=== PATIENT | male | born 1935 | race Caucasian/White ===

== ENCOUNTER → 2017-08-01 | Outpatient (CLI) | payer MEDICARE ==
--- NOTE | 2017-08-02 08:46 | RADONC ---
RADIATION ONCOLOGY CONSULTATION NOTE DATE: 08/01/2017 CHART NUMBER: [id number] DIAGNOSIS: Squamous cell carcinoma of skin. STAGE: Stage 1, T1N0M0. ECOG PERFORMANCE STATUS: 0. CONSULTATION NOTE: Mr. 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 HISTORY OF PRESENT ILLNESS: The patient reports that he had a lesion on his right shoulder for several months. On 07/17/2017, he underwent a shave biopsy and pathology revealed an invasive well-differentiated squamous cell carcinoma. This specimen was bisected. The patient was given the option of further surgical excision or possible radiation therapy and is presenting today for discussion of his various options. PAST MEDICAL HISTORY: The patient's past medical history is positive for cardiac issues. He has had mitral valve repair as well as a pacemaker. He has kidney issues with nephrotic syndrome. He has a history of hypertension, diabetes and asthma. He also reports hepatitis and cataracts. He has had Lyme disease since 1997. He has ulnar nerve damage. ALLERGIES: The patient is allergic to NOVOCAIN and MYOSIN. SOCIAL HISTORY: The patient had smoked one pack of cigarettes per day for 10 years, he quit 1959. He does not abuse alcohol. FAMILY HISTORY: The patient's family history is positive for two aunts with breast cancer as well as a cousin with bladder cancer. REVIEW OF SYSTEMS: The patient's review of systems is positive for some hearing loss, some shortness of breath, decreased energy and visual disturbances since cataract surgery. It is otherwise generally noncontributory. He denies nausea, vomiting, fevers, chills, night sweats, diplopia, headaches, anxiety, depression, anorexia, headaches, chest pain, rectal bleeding or bowel problems. PHYSICAL EXAMINATION: The patient is well-developed, well-nourished white male in no acute distress. HEENT: Normocephalic, atraumatic. Extraocular movements are intact. There is no palpable cervical, supraclavicular, infraclavicular, axillary, or inguinal lymphadenopathy present. His lungs are clear to auscultation and percussion. There is a well-healed surgical scar present over the skin of his right shoulder. There are no other lesions or areas of concern over the patient's neck, face or back. ASSESSMENT: I had a very lengthy discussion with this patient and his . Clearly, he is a candidate for external beam radiation therapy and I have so informed him. I have discussed with the patient in detail the potential benefits as well as possible acute and chronic sequelae of external beam radiation therapy. We discussed logistics of treatment planning, simulation and subsequent fractionated daily radiation treatments. In addition, I discussed the possibility of surgery. I think he would be a very good surgical candidate as well. I explained the benefits and drawbacks of each of the treatment modalities. The patient is a very high cure rate from this and I therefore feel he cannot make a wrong decision. He is aware that surgery would be the faster treatment and most likely the least expensive of the two options. He does live in [place] and I explained to him that these treatments are on a daily basis for approximately four weeks' time which would be a lot of commuting. At the end of the discussion, the patient apparently has decided he would prefer radiation. I have therefore scheduled him for initiation of treatment planning. I let him know he can change his mind at any time before the radiation treatments start and just to let us know so we could cancel that appointment. Thank you for allowing us to participate in the care of this very pleasant gentleman. If I could be of any further assistance or provide you with any information, please free to contact me at anytime. As always warm regards. cc: TRINITY Mathis
== END ==
LOC: M ONCR 09:10
PROVIDERS: ATTEND Radiology Radiation Oncology
DX: C44.601 Unspecified malignant neoplasm of skin of unspecified upper limb, including shoulder (principal)

== ENCOUNTER 2017-08-30 15:00 | Outpatient (RCR) | payer MEDICARE ==
--- NOTE | 2017-09-05 16:48 | RADONC ---
RADIATION ONCOLOGY PROGRESS NOTE DATE: 09/04/2017 CHART NUMBER: [id number]. PROGRESS NOTE: Ms. Leigh is presently at a dose of 2750 cGy to the skin on his right shoulder and is tolerating treatments quite well at this point with no complaints related to his radiation therapy. He is having no discomfort or other problems. REVIEW OF SYSTEMS: The patient's review of systems is noncontributory. Denies nausea, vomiting, fevers, chills, night sweats, diplopia, headaches, anxiety or depression, anorexia, weight loss, visual disturbances, chest pain, urinary or bowel difficulties, bone pain, or neurological problems. PHYSICAL EXAMINATION: The patient's skin is in good condition with no evidence of radiation change present. There is no moist or dry desquamation. The remainder of his physical exam remains unchanged. Mr. Leigh is tolerating treatments quite well and radiation will continue as scheduled.
--- NOTE | 2017-09-12 07:39 | RADONC ---
RADIATION ONCOLOGY PROGRESS NOTE DATE: 09/11/2017 CHART NUMBER: [id number] Mr. Leigh is presently at a dose of 4000 cGy to the skin of his back and is tolerating treatments quite well at this point with no complaints related to his radiation therapy. He is having no skin discomfort or other problems. The patient was found to have a new squamous cell carcinoma involving his forehead and we will be setting him up for an electron setup this week to initiate treatment to that area as well. REVIEW OF SYSTEMS: The patient's review of systems is noncontributory. He denies nausea, vomiting, fevers, chills, night sweats, diplopia, headaches, anxiety or depression, anorexia, weight loss, visual disturbances, chest pain, urinary or bowel difficulties, bone pain or neurological problems. PHYSICAL EXAMINATION: The patient's skin is in excellent condition with no evidence of moist or dry desquamation. The remainder of his physical exam remains unchanged. Mr. Leigh is tolerating treatments quite well and radiation will continue as scheduled.
--- NOTE | 2017-09-12 13:20 | RADONC ---
RADIATION ONCOLOGY SIMULATION NOTE DATE: 09/12/2017 CHART NUMBER: [id number] Mr. Leigh was taken to the linear accelerator today for clinical setup of his right episcopal electron beam field. Setup was accomplished without difficulty or discomfort. Radiation treatment planning is underway and radiation treatments will begin subsequently. An immobilization device was created and will be used throughout the course of treatment. I was physically present throughout the course of electron beam setup simulation.
--- NOTE | 2017-09-19 05:54 | RADONC ---
RADIATION ONCOLOGY PROGRESS NOTE DATE: 09/18/2017 CHART NUMBER: [id number] Mr. Leigh is presently at a dose of 5000 cGy to the skin on his back and is about to start radiation to his left moravian. He is tolerating his treatments quite well with no difficulties related to his radiation therapy. The patient's review of systems is noncontributory. He denies nausea, vomiting, fevers, chills, night sweats, diplopia, headaches, anxiety or depression, anorexia, weight loss, visual disturbances, chest pain, urinary or bowel difficulties, bone pain, or neurological problems. PHYSICAL EXAMINATION: The patient's skin is in excellent condition with just a minimal erythema present. The remainder of his physical exam remains unchanged. Mr. Leigh is tolerating treatments quite well and radiation will continue as scheduled.
--- NOTE | 2017-09-25 10:22 | RADONC ---
RADIATION ONCOLOGY PROGRESS NOTE DATE: 09/25/2017 CHART NUMBER: [id number] Mr. Leigh is presently at a dose of 750 cGy to his left rastafari and is tolerating treatments quite well at this point with no complaints related to his radiation therapy. He is having no skin or bone pain. He does have some tenderness of the skin over the shoulder which was completed a week ago. The patient's review of systems is positive for some shoulder skin tenderness but is otherwise noncontributory. He denies nausea, vomiting, fevers, chills, night sweats, diplopia, headaches, anxiety or depression, anorexia, weight loss, visual disturbances, chest pain, urinary or bowel difficulties, bone pain, or neurological problems. PHYSICAL EXAMINATION: The patient's skin is in good condition with no evidence of moist or dry desquamation. The remainder of his physical exam remains unchanged. Mr. Leigh is tolerating treatments quite well and radiation will continue as scheduled.
== END 2017-09-28 ==
LOC: M ONCR 15:00
PROVIDERS: ATTEND Radiology Radiation Oncology
DX: C44.602 Unspecified malignant neoplasm of skin of right upper limb, including shoulder (principal)

== ENCOUNTER 2017-09-29 15:02 | Outpatient (RCR) | payer MEDICARE | END 2017-10-29 | LOC: M ONCR 15:02 | DX: Z51.89 Encounter for other specified aftercare (principal); C44.602 Unspecified malignant neoplasm of skin of right upper limb, including shoulder | CPT/HCPCS: 77336 ==

== ENCOUNTER → 2017-11-22 | Outpatient (CLI) | payer MEDICARE | LOC: M ONCR 10:14 | DX: C44.222 Squamous cell carcinoma of skin of right ear and external auricular canal (principal) ==

== ENCOUNTER → 2019-04-17 | Outpatient (REF) | payer MEDICARE | LOC: M LAB LCGH 15:30 | PROVIDERS: ATTEND Physician Assistant | DX: C44.320 Squamous cell carcinoma of skin of unspecified parts of face (principal) ==

== ENCOUNTER → 2020-02-19 | Outpatient (REF) | payer MEDICARE | LOC: M LAB REF 14:00 | PROVIDERS: ATTEND Dermatology | DX: C44.320 Squamous cell carcinoma of skin of unspecified parts of face (principal) ==

== ENCOUNTER → 2021-06-23 | Outpatient (CLI) | payer MEDICARE ==
[~2021-06-23] MED LIST: ALBU8.5H INH; BISO10TA14 PO; BUDE0.5S6 INH; BUME2TAB3 PO; FLUT1BLS6 INH; IPRA0.00 INH; LOSA25TA14 PO; MELO7.5T35 PO; OMEP-221 PO; SIMV40TA20 PO; TAMS1CAP17 PO; VITMTA PO; XARE20TA PO
== END ==
LOC: M LABSMTC 09:34
PROVIDERS: ATTEND Anesthesiology
DX: Z01.818 Encounter for other preprocedural examination (principal); Z11.52 Encounter for screening for COVID-19

== ENCOUNTER 2021-06-25 07:32 | Day surgery (SDC) | payer MEDICARE ==
[~2021-06-25] VITALS: Ht 175.3 cm; Wt 98.0 kg
[~2021-06-25 07:32] MED LIST changes: +NS 1,000 ML IV ONE
[2021-06-25] MEDS ORDERED: LIDOCAINE 2% 100MG/5ML SDV (FOR ANES.) As Ordered ONE (08:31)
[2021-06-25] MEDS ORDERED: fentaNYL 100 MCG/2 ML INJECTION (J3010) As Ordered ONE (08:31)
[2021-06-25] MEDS ORDERED: propofoL 200 MG/20 ML VIAL As Ordered ONE (08:31)
--- NOTE | 2021-06-25 09:11 | ROOR ---
Patient Name: Ramana Leigh Procedure Date: 06/25/2021 8:31 AM Date of : 1935 Age: 86 Room: [facility] Gender: Male Note Status: Finalized Procedure: Upper GI endoscopy Indications: Dysphagia, Heartburn, Abnormal CT of the GI tract Providers: Nura Schmitz MD Referring MD: Rock Waller Do Requesting Provider: Medicines: Monitored Anesthesia Care Complications: No immediate complications. Procedure: Pre-Anesthesia Assessment: - Prior to the procedure, a History and Physical was performed, and patient medications and allergies were reviewed. The patient is competent. The risks and benefits of the procedure and the sedation options and risks were discussed with the patient. All questions were answered and informed consent was obtained. Patient identification and proposed procedure were verified by the physician, the nurse and the anesthesiologist in the procedure room. Mental Status Examination: alert and oriented. Airway Examination: normal oropharyngeal airway and neck mobility. Respiratory Examination: clear to auscultation. CV Examination: normal. Prophylactic Antibiotics: The patient does not require prophylactic antibiotics. Prior Anticoagulants: The patient has taken no previous anticoagulant or antiplatelet agents. ASA Grade Assessment: II - A patient with mild systemic disease. After reviewing the risks and benefits, the patient was deemed in satisfactory condition to undergo the procedure. The anesthesia plan was to use monitored anesthesia care (MAC). Immediately prior to administration of medications, the patient was re-assessed for adequacy to receive sedatives. The heart rate, respiratory rate, oxygen saturations, blood pressure, adequacy of pulmonary ventilation, and response to care were monitored throughout the procedure. The physical status of the patient was re-assessed after the procedure. The Endoscope was introduced through the mouth, and advanced to the second part of duodenum. The upper GI endoscopy was accomplished without difficulty. The patient tolerated the procedure well. Findings: Abnormal motility was noted in the proximal esophagus. The cricopharyngeus was abnormal. A TTS dilator was passed through the scope. Dilation with an 18-19-20 mm balloon dilator was performed to 18 mm. Patchy, white plaques were found in the upper third of the esophagus. Biopsies were taken with a cold forceps for histology. Verification of patient identification for the specimen was done by the physician and nurse using the patient's name, date and medical record number. Estimated blood loss was minimal. LA Grade A (one or more mucosal breaks less than 5 mm, not extending between tops of 2 mucosal folds) esophagitis with no bleeding was found in the distal esophagus. Biopsies were taken with a cold forceps for histology. Scattered moderate inflammation characterized by erythema and granularity was found in the gastric antrum. Biopsies were taken with a cold forceps for Helicobacter pylori testing. The duodenal bulb and second portion of the duodenum were normal. Impression: - Abnormal esophageal motility, suspicious for esophageal spasm. Dilated. - Esophageal plaques were found, consistent with candidiasis. Biopsied. - LA Grade A reflux esophagitis. Rule out Noel's esophagus. Biopsied. - Gastritis. Biopsied. - Normal duodenal bulb and second portion of the duodenum. Recommendation: - Patient has a contact number available for emergencies. The signs and symptoms of potential delayed complications were discussed with the patient. Return to normal activities tomorrow. Written discharge instructions were provided to the patient. - High fiber diet. - Continue present medications. - Await pathology results. - Telephone GI clinic for pathology results in 2 weeks. - Gargle the throat with water and swallow after each use of inhaler Medication. - Return to GI clinic if persistent symptoms or new symptoms. - Return to primary care physician. Procedure Code(s): --- Professional --- 54280, 59, Esophagogastroduodenoscopy, flexible, transoral; with transendoscopic balloon dilation of esophagus (less than 30 mm diameter) 65219, 59, Esophagogastroduodenoscopy, flexible, transoral; with biopsy, single or multiple Diagnosis Code(s): --- Professional --- K22.4, Dyskinesia of esophagus K22.9, Disease of esophagus, unspecified K21.0, Gastro-esophageal reflux disease with esophagitis K29.70, Gastritis, unspecified, without bleeding R13.10, Dysphagia, unspecified R12, Heartburn R93.3, Abnormal findings on diagnostic imaging of other parts of digestive tract CPT copyright 2019 [employer]. All rights reserved. The codes documented in this report are preliminary and upon director of manufacturing review may be revised to meet current compliance requirements. Nura Schmitz MD Nura Schmitz MD 06/25/2021 9:10:54 AM Electronically signed by Nura Schmitz MD Number of Addenda: 0 Note Initiated On: 06/25/2021 8:31 AM Estimated Blood Loss: Estimated blood loss was minimal.
[2021-06-25 09:19] VITALS: BP 104/68
== END 2021-06-25 09:32 | disposition home or self-care (01) ==
LOC: M OPP 07:32
PROVIDERS: ATTEND Internal Medicine Gastroenterology
DX: K22.4 Dyskinesia of esophagus (principal); K22.8 Other specified diseases of esophagus; K21.00 Gastro-esophageal reflux disease with esophagitis, without bleeding; K29.70 Gastritis, unspecified, without bleeding; R13.10 Dysphagia, unspecified; R93.3 Abnormal findings on diagnostic imaging of other parts of digestive tract; Z79.899 Other long term (current) drug therapy; Z88.8 Allergy status to other drugs, medicaments and biological substances; Z87.891 Personal history of nicotine dependence
CPT/HCPCS: 43239; 43249; 88305; 88342; J3010

== ENCOUNTER → 2021-08-10 | Outpatient (REF) | payer MEDICARE ==
[~2021-08-10] MED LIST changes: -NS 1,000 ML IV ONE
== END ==
LOC: M LAB REF 14:24
PROVIDERS: ATTEND Physician Assistant
DX: C44.329 Squamous cell carcinoma of skin of other parts of face (principal); L57.0 Actinic keratosis

== ENCOUNTER → 2021-12-08 | Outpatient (REF) | payer MEDICARE ==
[~2021-12-08] MED LIST changes: +LOSA25TA13 PO; -LOSA25TA14 PO; -OMEP-221 PO; +OMEP40CA5 PO
== END ==
LOC: M SFHCDERM 17:04
PROVIDERS: ATTEND Dermatology
DX: C44.42 Squamous cell carcinoma of skin of scalp and neck (principal)

== ENCOUNTER → 2021-12-17 | Outpatient (CLI) | payer MEDICARE | LOC: M ONCR 10:02 | PROVIDERS: ATTEND General Practice | DX: C44.1291 Squamous cell carcinoma of skin of left upper eyelid, including canthus (principal); C44.42 Squamous cell carcinoma of skin of scalp and neck; Z79.01 Long term (current) use of anticoagulants; Z85.828 Personal history of other malignant neoplasm of skin ==

== ENCOUNTER → 2022-01-27 | Outpatient (RCR) | payer MEDICARE | LOC: M ONCR 12-29 07:32 | PROVIDERS: ATTEND General Practice | DX: C44.1291 Squamous cell carcinoma of skin of left upper eyelid, including canthus (principal) ==

== ENCOUNTER 2022-02-21 11:06 | Outpatient (RCR) | payer MEDICARE | END 2022-02-26 | LOC: M ONCR 11:06 | PROVIDERS: ATTEND General Practice | DX: C44.1291 Squamous cell carcinoma of skin of left upper eyelid, including canthus (principal); C44.602 Unspecified malignant neoplasm of skin of right upper limb, including shoulder ==

== ENCOUNTER 2022-03-01 13:35 | Outpatient (RCR) | payer MEDICARE ==
[2022-03-01] MEDS ORDERED: PREDOPD OS (14:29)
[2022-04-01] MEDS ORDERED: ALBU8.5H INH (14:12)
[2022-04-01] MEDS ORDERED: AZIT-12 PO (14:44)
[2022-04-01] MEDS ORDERED: PRED20TA PO (14:44)
== END 2022-03-29 ==
LOC: M ONCR 13:35
PROVIDERS: ATTEND General Practice
DX: C44.1291 Squamous cell carcinoma of skin of left upper eyelid, including canthus (principal); C44.602 Unspecified malignant neoplasm of skin of right upper limb, including shoulder

== ENCOUNTER → 2022-04-01 | Outpatient (CLI) | payer MEDICARE ==
[~2022-04-01] MED LIST changes: +AZIT-12 PO; +PRED20TA PO; +PREDOPD OS
== END ==
LOC: M ONCR 13:05
PROVIDERS: ATTEND General Practice
DX: R06.2 Wheezing (principal); R05.9 Cough, unspecified

== ENCOUNTER → 2022-05-25 | Outpatient (REF) | payer MEDICARE | LOC: M SFHCDERM 10:10 | PROVIDERS: ATTEND Physician Assistant | DX: C44.41 Basal cell carcinoma of skin of scalp and neck (principal) ==

== ENCOUNTER → 2022-06-29 | Outpatient (CLI) | payer MEDICARE ==
[~2022-06-29] MED LIST changes: +TOBRSUS8 OS
== END ==
LOC: M ONCR 13:25
PROVIDERS: ATTEND General Practice
DX: H57.89 Other specified disorders of eye and adnexa (principal); Z85.828 Personal history of other malignant neoplasm of skin; Z92.3 Personal history of irradiation

== ENCOUNTER 2022-08-02 10:46 | Outpatient (RCR) | payer MEDICARE ==
[2022-09-01] MEDS ORDERED: VALA1TAB5 (09:46)
[2022-09-01] MEDS ORDERED: AMIO200T49 (09:56)
[2022-09-01] MEDS ORDERED: SIMV20TA22 PO (09:59)
[2022-09-01] MEDS ORDERED: XARE15TA PO (09:59)
[2022-09-01] MEDS ORDERED: BISO5TAB14 PO (09:59)
== END 2022-08-29 ==
LOC: M ONCR 10:46
PROVIDERS: ATTEND General Practice
DX: C44.1291 Squamous cell carcinoma of skin of left upper eyelid, including canthus (principal)

== ENCOUNTER → 2023-02-17 | Outpatient (CLI) | payer MEDICARE ==
[~2023-02-17] MED LIST changes: +AMIO200T49; +BISO5TAB14 PO; +LEVO1TAB39; +SIMV20TA22 PO; +STIO1AER IN; +VALA1TAB5; +XARE15TA PO
== END ==
LOC: M RAD 11:51
PROVIDERS: ATTEND Internal Medicine Critical Care Medicine
DX: R06.02 Shortness of breath (principal); Z95.0 Presence of cardiac pacemaker

== ENCOUNTER → 2023-02-23 | Outpatient (REF) | payer MEDICARE | LOC: M SFHCDERM 13:54 | PROVIDERS: ATTEND Physician Assistant | DX: C44.329 Squamous cell carcinoma of skin of other parts of face (principal); C44.41 Basal cell carcinoma of skin of scalp and neck ==

== ENCOUNTER → 2024-01-16 | Outpatient (CLI) | payer MEDICARE ==
[~2024-01-16] MED LIST changes: +LEVO25TA5 PO; +LIDOCAINE 1% MDV 20ML VIAL As Ordered ONE
[2024-01-16 11:35] VITALS: TEMP 97.7
[2024-01-16 11:48] LABS: BASO # 0.1 10^3/uL (0.0-0.2); BASO % 0.6 % (0.0-1.0); EOS # 0.3 10^3/uL (0.0-0.5); EOS % 2.7 % (0.0-3.0); HEMATOCRIT 29.7 % (42.0-52.0); HEMOGLOBIN 9.3 g/dl (13.5-17.5); LYMPH % 10.3 % (24.0-44.0); MEAN CORPUSCULAR HEMOGLOBIN 27.4 pg (27.0-33.0); MEAN CORPUSCULAR HGB CONC 31.3 g/dl (32.0-36.5); MEAN CORPUSCULAR VOLUME 87.4 fl (80.0-96.0); MONO % 9.7 % (2.0-8.0); NEUTROPHILS # 7.7 10^3/uL (1.5-8.5); NEUTROPHILS % 76.4 % (36.0-66.0); PLATELET COUNT, AUTOMATED 297 10^3/uL (150-450); WHITE BLOOD COUNT 10.1 10^3/uL (4.0-10.0)
[2024-01-16 12:00] LABS: INR 1.31; PROTHROMBIN TIME 15.9 SECONDS (12.5-14.5)
[2024-01-16 12:58] VITALS: BP 134/72; O2SAT 98
== END ==
LOC: M IRPRO 10:52
PROVIDERS: ATTEND Specialist
DX: D64.9 Anemia, unspecified (principal)